=== PATIENT | female | born 1985 | race African-American/Black ===

== ENCOUNTER 2024-08-26 17:30 | Emergency (ER) | payer OTHER, SELFPAY ==
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
[2024-08-26 17:38] VITALS: BP 140/90; PULSE 105; O2SAT 99
[2024-08-26 17:39] VITALS: BP 134/83; PULSE 98; RESP 16; TEMP 37; O2SAT 99; BMI 23.0
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
[2024-08-26 20:11] VITALS: BP 117/77; PULSE 101; RESP 16; TEMP 36.7; O2SAT 100
--- OUTSIDE RECORDS SUMMARY | 2024-08-26 20:13 | XMS_ITS | Referral Summary ---
Author Organization [facility] Address [address] [place] [address] Care Team Providers Care President Sales And Marketing Name Role Phone Kat Park Primary Care Provider [phone] Allergies No known active allergies Medications * This document contains information received from the source organization and may not represent a complete record from that organization. No known medications Active Problems Problem Noted Date Diagnosed Date OCD (obsessive compulsive disorder) 12/30/2021 Social History Tobacco Use Types Packs/Day Years Used Date Smoking Tobacco: Never Assessed Sex and Gender Information Value Date Recorded Sex Assigned at Male 12/06/2021 10:20 PM EDT Legal Sex Female 10:04 AM EST Gender Identity Female 12/06/2021 10:20 PM EDT Sexual Orientation Straight 12/06/2021 10 :20 PM EDT Plan of Treatment Not on file Insurance [facility] MEDICAID Care Teams President Sales And Marketing Relationship Specialty Start Date End Date Kat Park [address] [place] [address] PCP - General Family Medicine 07/08/21
--- OUTSIDE RECORDS SUMMARY | 2024-08-26 20:13 | XMS_ITS | Clinical Summary ---
Author Organization [facility] Address [address] [place] [address] Care Team Providers Care Fuel Verification Technician Name Role Phone Kat Park Primary Care Provider [phone] Allergies No known active allergies Medications * [...] 10 :20 PM EDT Plan of Treatment Health Maintenance Due Date Last Done Comments Cervical Cancer Screening 1987 HIV Screening 1987 HPV and Pap Smear 1987 Pap Smear 1987 Hepatitis B Vaccines (1 of 3 - 19+ 3-dose series) 2006 COVID-19 Vaccine (2023-2 5 season) 2024 07/20/2021, 11/01/2020, 10/01/2020 Influenza Vaccine (#1) 2024 , 04/06/2018, 03/24/2017 Alcohol/Substance Use Screening 05/22/2024 DTaP,Tdap,and Td Vaccines (3 - Td or Tdap) 04/06/2028 04/06/2018, 03/24/2017 RSV Vaccine (60+ years old and patients) (1 - 1-dose 75+ series) 2062 Varicella Vaccines Completed 05/11/2015, 04/09/2015 Pneumococcal Vaccine: Pediatric (0-5 Years) and At-Risk Patients (6-50 Years) Aged Out No longer eligible based on patient's age to complete this topic Insurance [facility] MEDICAID Care Teams Fuel Verification Technician Relationship Specialty Start Date End Date Kat Park [address] [place] [address] PCP - General Family Medicine 07/08/21
[2024-08-26] MEDS: Ketorolac Tromethamine 15 MG/ML VIAL IM (21:29)
[2024-08-26] MEDS: methocarbamoL 750 MG TABLET PO (21:29)
[2024-08-26 21:48] VITALS: BP 117/77; PULSE 101; RESP 16; TEMP 36.7; O2SAT 100
== END 2024-08-26 21:49 | disposition home or self-care (01) ==
PROVIDERS: Emergency Provider Emergency Medicine Emergency Medical Services
DX: S13.4XXA Sprain of ligaments of cervical spine, initial encounter (principal); R51.9 Headache, unspecified; M54.2 Cervicalgia; V43.62XA Car passenger injured in collision with other type car in traffic accident, initial encounter; Y93.9 Activity, unspecified; Y92.410 Unspecified street and highway as the place of occurrence of the external cause; Y99.8 Other external cause status
CPT/HCPCS: 70450; 72125; 96372; 99284; J1885

== ENCOUNTER → 2024-08-26 18:00 | Outpatient (BNV) | payer OTHER, SELFPAY | PROVIDERS: Emergency Provider Emergency Medicine Emergency Medical Services; Visit Provider Radiology Diagnostic Radiology | DX: M54.2 Cervicalgia (principal); S00.93XA Contusion of unspecified part of head, initial encounter | CPT/HCPCS: 70450; 72125 ==